=== PATIENT | female | born 1960 | race Caucasian/White ===

== ENCOUNTER 2024-08-05 12:10 | Emergency (ER) | payer BC, SELFPAY ==
[2024-08-05 12:18] VITALS: BP 176/99; PULSE 61; RESP 18; TEMP 36.3; O2SAT 98; BMI 23.2
--- NOTE | 2024-08-05 12:54 | CRLHL7_ITS ---
For Patients: As a result of the Century Cures Act, medical imaging exams and procedure reports are released immediately into your electronic medical record. You may view this report before your referring provider. If you have questions, please contact your health care provider. INDICATION: History of pneumothorax. History of lymphangioleiomyomatosis COMPARISON: None TECHNIQUE: : CT examination of the chest was performed without contrast.Thin axial sections were obtained from the thoracic inlet through the lung bases. Please note that all CT scans at this facility use dose modulation, iterative reconstruction, and/or weight-based dosing when appropriate to reduce radiation dose to as low as reasonably achievable. FINDINGS: : HEART and MEDIASTINUM: The heart size is normal. There is no mediastinal or hilar adenopathy or mass. There is no pericardial effusion.There are small thyroid nodules on the right which would best be studied by sonography. LUNGS and PLEURAL SPACES: The lungs show multiple thin-walled cysts ranging in size from several millimeters to about 3 centimeters. This is consistent with the clinical history ACOSTA. Scarring is noted in the right middle lobe. Atelectasis at the right base. No pleural effusion or pneumothorax. There is also subpleural scarring at the right base. VISUALIZED UPPER ABDOMEN: The limited visualized upper abdominal structures appear normal. Low-density left renal structure probably a cyst. This prior peripelvic sinus lymphatic cyst. The right kidney appears to be surgically absent. OSSEOUS STRUCTURES: Age-appropriate appearance. No acute fracture or destructive process. TUBES and LINES: None. IMPRESSION: 1. 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 No pleural effusion or pneumothorax. 2. Pleural-parenchymal scarring near the right middle lobe and minimal atelectasis at the right base. 3. No pleural effusion or pneumothorax. 4. 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 The right kidney is surgically absent. Please note that all CT scans at this facility use dose modulation, iterative reconstruction, and/or weight-based dosing when appropriate to reduce radiation dose to as low as reasonably achievable. Dictated by Chris Alexander MD @ 08/05/2024 1:51:22 PM (Electronically Signed)
--- NOTE | 2024-08-05 13:06 | ED_ITS ---
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 She has had this condition for decades and has an increased risk for spontaneous pneumothorax. She states that she has been feeling some symptoms of chest discomfort and mild shortness of breath over the past couple weeks. She did have a prescription for a Z-Ced with a diagnosis of mycoplasma infection. She took this medicine and did not have any improvement and found out from her specialist attending to her lymphangioleiomyomatosis that her immune modulating medicine will disabled the effectiveness of Zithromax. She has discontinued this medicine over the past couple weeks. She has not taken another course of Zithromax. She wonders if she might have a spontaneous pneumothorax. She arrives here with normal vital signs. She states that she did not sleep well last night because of discomfort. Related Data Previous Rx's ?Medication ?Instructions ?Recorded azithromycin 250 mg tablet 250 mg PO DAILY #6 tabs 08/05/24 (Zithromax Z-Ced) hydrocodone 5 mg-acetaminophen 325 1 tab PO Q4-6H PRN pain #15 tabs 08/05/24 mg tablet ketorolac 10 mg tablet 10 mg PO Q8H 5 days #15 tabs 08/05/24 Allergies Allergy/AdvReac Type Severity Reaction Status Date / Time No Known Drug Allergies Allergy Verified 08/05/24 12:18 Review of Systems Status of ROS: Reports: 10 or more systems reviewed and unremarkable except as noted in History and below Narrative: Constitutional: No fevers, no weight gain or loss. Eyes: No discharge. No vision changes. HENT: No congestion, no sore throat, no ear pain. Cardiovascular: No chest pain, no palpitations. Respiratory: Discomfort in the right lateral lower lung area with mild shortness of breath. Gastrointestinal: No abdominal pain, no vomiting, no diarrhea. Genitourinary: No dysuria, no hematuria. Musculoskeletal: Normal range of motion. Skin: No rashes, no pruritis. Neurological: No dizziness, weakness, sensory change, speech change. Endo/Heme/Allergies: No bruising or bleeding. No polydipsia. Pysch: no suicidality, no anxiety, no insomnia. All other systems reviewed and are negative. PFSH PFSH Social History Smoking Status: Never smoker Non-prescribed substance use: denies use Exam Narrative: Exam Narrative: Constitutional: Well-developed, well-nourished, no acute distress. HEENT: Normocephalic, atraumatic. Neck: Normal range of motion. Nontender. Supple. Heart: Regular. No murmurs. Normal rate. Intact distal pulses. Lungs: Clear to auscultation. No chest discomfort. No wheezes, rhonchi, or rales. Abdomen: Normal bowel sounds. Nontender. No rebound tenderness. Genitalia: Deferred. Back: No midline tenderness. Normal range of motion. Extremities: Normal range of motion. No injury. Skin: Intact. No rash. Warm. No erythema or pallor. Neurologic: No altered sensation. No weakness. Alert and oriented. Psychiatric: No suicidality. No anxiety or depression. No insomnia. Nursing notes and vitals signs are reviewed. Const: Vital Signs, click to edit/add: Vital Signs - 24 hr 08/05/24 12:18 Temperature 97.4 F L Pulse Rate [Pulse Oximeter] 61 Respiratory Rate 18 Blood Pressure [Ri ght Upper Arm] 176/99 H Pulse Oximetry 98 Oxygen Delivery Me thod Room Air Course Vital Signs Vital signs: Initial Vital Signs Temperature 97.4 F L 08/05/24 12:18 Temperature Source Temporal Artery Scan 08/05/24 12:18 Pulse Rate 61 08/05/24 12:18 Pulse Rhythm Regular 08/05/24 12:18 Respiratory Rate 18 08/05/24 12:18 Respiratory Effort Normal, Spontaneous, Non-Labored 08/05/24 12:18 Respiratory Depth Normal 08/05/24 12:18 Respiratory Pattern Normal 08/05/24 12:18 Blood Pressure 176/99 H 08/05/24 12:18 Blood Pressure Mean 124 H 08/05/24 12:18 Blood Pressure Position High-Fowlers 08/05/24 12:18 Pulse Oximetry 98 08/05/24 12:18 Oxygen Delivery Method Room Air 08/05/24 12:18 Vital Signs Temperature 97.4 F L 08/05/24 12:18 Pulse Rate 61 08/05/24 12:18 Respiratory Rate 18 08/05/24 12:18 Blood Pressure 176/99 H 08/05/24 12:18 Pulse Oximetry 98 08/05/24 12:18 Oxygen Delivery Method Room Air 08/05/24 12:18 Temperature 97.4 F L 08/05/24 12:18 Pulse Rate 61 08/05/24 12:18 Respiratory Rate 18 08/05/24 12:18 Blood Pressure 176/99 H 08/05/24 12:18 Pulse Oximetry 98 08/05/24 12:18 Oxygen Delivery Method Room Air 08/05/24 12:18 Medical Decision Making MDM Narrative Medical decision making narrative: This patient comes in with concern that she may have a pneumothorax. She does have a chronic condition that puts her increased risk for this to occur. A CT scan of her chest is completed and shows multiple cystic structures consistent with lymph angio leiomyomatosis but no sign of infiltrate or pneumothorax. This was reassuring to the patient. She was prescribed Zithromax a few weeks ago and completed this treatment but did so while taking her sirolimus which her doctor states will notify the benefit of Zithromax. She has not been taking this medicine now for a couple weeks so I did prescribe Zithromax along with Toradol and some tablets of [place]. She is okay to be discharged home. Imaging Data CT scan - chest: Radiologist's impression: 1. 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 No pleural effusion or pneumothorax. 2. Pleural-parenchymal scarring near the right middle lobe and minimal atelectasis at the right base. 3. No pleural effusion or pneumothorax. 4. 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 The right kidney is surgically absent. Discharge Plan Discharge Clinical Impression: Lower respiratory infection Patient Disposition: Home, Self-Care Condition: Stable Additional Instructions: Take medications as prescribed and needed. Follow up with MD or return if worsening symptoms occur. Prescriptions: New ketorolac 10 mg tablet 10 mg PO Q8H 5 Days Qty: 15 0RF azithromycin [Zithromax Z-Ced] 250 mg tablet 250 mg PO DAILY Qty: 6 0RF hydrocodone-acetaminophen 5-325 mg tablet 1 tab PO Q4-6H PRN (Reason: pain) Qty: 15 0RF Follow Up/Referrals: Nivia Valentin MD [Primary Care Provider] - Stand Alone Forms: [address] Info Instructions
== END 2024-08-05 14:30 | disposition home or self-care (01) ==
PROVIDERS: Emergency Provider Emergency Medicine Emergency Medical Services; PCP Family Medicine
DX: J22 Unspecified acute lower respiratory infection (principal)
CPT/HCPCS: 71250; 99283; 99284